=== PATIENT | male | born 1955 | race Two or more races ===

== ENCOUNTER 2025-05-02 16:27 | Inpatient (IN) | payer MEDICARE, OTHER ==
[~2025-05-02] VITALS: Ht 172.7 cm; Wt 69.9 kg
[2025-05-02] MEDS: HEPARIN SODIUM, PORCINE 5000 UNITS/1 ML VIAL SQ ONE ×2 (10:00→22:30)
[2025-05-02 16:59] LABS: LYMPHOCYTES # (AUTO) 0.2 K/uL (0.8-4.8); MONOCYTES # (AUTO) 0.8 K/uL (0.1-1.30); NEUTROPHILS # (AUTO) 8.8 K/uL (1.8-8.9); WHITE BLOOD COUNT (AUTO) 9.9 K/uL (4.3-11.0)
[2025-05-02 17:03] LABS: BASOPHILS % (AUTO) 0.1 % (0.0-2.0); HEMATOCRIT 40 % (39-51); HEMOGLOBIN 13.7 g/dL (13.5-17.5); LYMPHOCYTES % (AUTO) 2.3 % (20.0-44.0); MEAN CORPUSCULAR HEMOGLOBIN 30 PG (26.0-33.0); MEAN CORPUSCULAR HGB CONC 34 g/dl (31.0-36.0); MEAN CORPUSCULAR VOLUME 86 fL (80-96); MONOCYTES % (AUTO) 8.5 % (2.0-12.0); NEUTROPHILS % (AUTO) 89.1 % (43.0-81.0); PLATELET COUNT (AUTO) 242 K/uL (150-450); RED BLOOD CELL COUNT(AUTO) 4.64 MIL/uL (4.5-6.0)
[2025-05-02 17:05] LABS: CALCIUM, SERUM 9.3 mg/dL (8.5-10.1); CARBON DIOXIDE 19 mmol/L (21-32); CHLORIDE 94 mmol/L (98-107); GLUCOSE 112 mg/dL (74-106); POTASSIUM 3.7 mmol/L (3.5-5.1); SODIUM SERUM 137 mmol/L (136-145)
[2025-05-02 17:08] LABS: CREATININE 11.6 mg/dL (0.6-1.3); UREA NITROGEN, BLOOD 131 mg/dL (7-18)
[2025-05-02 17:09] LABS: ALANINE AMINOTRANSFERASE 243 U/L (12-78); ALBUMIN 3.3 g/dL (3.4-5.0); ALKALINE PHOSPHATASE 482 U/L (46-116); ASPARTATE AMINOTRANSFERASE 58 U/L (15-37); BILIRUBIN,DIRECT 6.2 mg/dL (0.0-0.2); BILIRUBIN,TOTAL 9.5 mg/dL (0.2-1.0); TOTAL PROTEIN, SERUM 7.3 g/dL (6.4-8.2)
[2025-05-02 17:11] LABS: ACETAMINOPHEN <10 ug/ml (10-30); SALICYLATE < 2.8 mg/dL (2.8-20.0)
[2025-05-02 17:12] LABS: ALCOHOL, BLOOD < 3 mg/dL (0-10)
[2025-05-02] MEDS ORDERED: IV NS 0.9% 1,000 ML BAG IV ONE (17:30)
[2025-05-02] MEDS: IV NS 0.9% 1,000 ML BAG IV ONE (17:41)
[2025-05-02] MEDS ORDERED: MORPHINE SULFATE INJ 2 MG/ML DISP.SYRIN IV PRN (18:00)
[2025-05-02] MEDS ORDERED: Z GUARD REMEDY 4 OZ OINT TP PRN (18:00)
[2025-05-02 18:35] LABS: LYMPHOCYTES % (MANUAL) 1 % (16-48); MONOCYTES % (MANUAL) 6 % (0-11.0); NEUTROPHILS % (MANUAL) 93 (42-76); PLATELET ESTIMATE ADEQUATE
[2025-05-02 18:36] LABS: TARGET CELLS FEW; TEAR DROP CELLS FEW
[2025-05-02 18:38] LABS: LACTIC ACID 3.5 mmol/L (0.4-2.0)
[2025-05-02 19:00] VITALS: BP 149/116; O2SAT 98
[2025-05-02 19:06] LABS: CREATINE KINASE, TOTAL 964 U/L (39-308)
[2025-05-02] MEDS: IV NS 0.9% 1,000 ML IV PRN (19:42)
[2025-05-02 19:48] LABS: NT-PRO BNP 214270 pg/mL (0-125)
[2025-05-02 20:00] VITALS: BP_SYST 147; BP_SYST 160; BP_DIAS 110; BP_DIAS 114; TEMP 97.8; O2SAT 100
[2025-05-02 21:00] VITALS: BP 158/115; O2SAT 100
[2025-05-02 22:00] VITALS: BP 163/109; O2SAT 100
[2025-05-02 22:29] LABS: INR 1.68 (0.91-1.10); PARTIAL THROMBOPLASTIN TIME 31.8 SEC (24.3-34.3); PROTHROMBIN TIME 17.2 SECS (9.2-11.1)
[2025-05-02] MEDS: FUROSEMIDE 20 MG/2 ML VIAL IV ONE (22:41)
[2025-05-02 23:00] VITALS: BP 160/115; O2SAT 100
[2025-05-02 23:18] LABS: ABG BASE EXCESS -6.6 mmol/L (-2.0-3.0); ABG OXYGEN SATURATION 99.1 % (94.0-98.0); ABG PCO2 28.7 mmHg (35.0-48.0); ABG PH 7.389 (7.350-7.450); ABG PO2 166.1 mmHg (83.0-108.0); ABG TOTAL HEMOGLOBIN 13.7 G/dL (13.5-17.5); MetHb 0.2 % (0.0-1.5); O2Hb 97.9 % (94.0-97.0)
[2025-05-02] MEDS: HEPARIN SODIUM, PORCINE 5000 UNITS/1 ML VIAL IV ONE (23:22)
[2025-05-02] MEDS ORDERED: IV NS 0.9% 1,000 ML BAG IV PRN (23:30)
[2025-05-02] MEDS: HEPARIN INFUSION/D5W 500 ML IV PRN (23:34)
[2025-05-03] VITALS (27 sets, daily range): BP systolic 128–165; BP diastolic 67–127; TEMP 97.6–98.5; O2SAT 91–100
[2025-05-03] MEDS: SODIUM BICARBONATE SYR 50 MEQ/50 ML DISP.SYRIN ONE ×2 (00:23→00:25)
[2025-05-03 00:52] LABS: HEMOGLOBIN 13.8 g/dL (13.5-17.5); LYMPHOCYTES # (AUTO) 0.3 K/uL (0.8-4.8); MONOCYTES # (AUTO) 0.5 K/uL (0.1-1.30)
[2025-05-03] MEDS: Sodium Bicarbonate 100 MEQ in IV D5/0.45 NACL 1,000 ML IV PRN (01:01)
[2025-05-03 01:07] LABS: ALBUMIN 3.2 g/dL (3.4-5.0); BILIRUBIN,TOTAL 9.6 mg/dL (0.2-1.0); CALCIUM, SERUM 8.7 mg/dL (8.5-10.1); MAGNESIUM 2.8 mg/dL (1.8-2.4); POTASSIUM 3.6 mmol/L (3.5-5.1); TOTAL PROTEIN, SERUM 7.1 g/dL (6.4-8.2)
[2025-05-03 01:14] LABS: MEAN CORPUSCULAR HGB CONC 33 g/dl (31.0-36.0); NEUTROPHILS # (AUTO) 10.3 K/uL (1.8-8.9); PLATELET COUNT (AUTO) 54 K/uL (150-450); WHITE BLOOD COUNT (AUTO) 11.1 K/uL (4.3-11.0)
[2025-05-03 01:16] LABS: APPEARANCE,URINE CLEAR (CLEAR); BILIRUBIN,URINE 1+ (NEGATIVE); BLOOD, URINE 3+ Ery/uL (NEGATIVE); COLOR,URINE YELLOW (YELLOW); KETONES,URINE NEGATIVE (NEGATIVE); LEUKOCYTE ESTERASE ,URINE NEGATIVE (NEGATIVE); NITRITE, URINE NEGATIVE (NEGATIVE); PH,URINE 5.5 (5.0-8.0); PROTEIN,URINE 2+ mg/dl (NEGATIVE); UGLUCOSE NEGATIVE (NEGATIVE)
[2025-05-03 01:25] LABS: CREATININE, URINE 105.1 MG/DL (30.0-125.0); URINE TOTAL PROTEIN 131.5 mg/dL (0-11.9)
[2025-05-03 01:27] LABS: AMPHETAMINE, URINE NEGATIVE (NEGATIVE); BARBITURATE, URINE NEGATIVE (NEGATIVE); BENZODIAZEPINE, URINE NEGATIVE (NEGATIVE); CANNABINOID, URINE NEGATIVE (NEGATIVE); COCCAINE, URINE NEGATIVE (NEGATIVE); OPIATE, URINE NEGATIVE (NEGATIVE); PHENCYCLIDINE SCREEN,URINE NEGATIVE (NEGATIVE)
[2025-05-03 01:29] LABS: BASOPHILS % (AUTO) 0.2 % (0.0-2.0); HEMATOCRIT 42 % (39-51); LYMPHOCYTES % (AUTO) 2.8 % (20.0-44.0); MEAN CORPUSCULAR HEMOGLOBIN 29 PG (26.0-33.0); MEAN CORPUSCULAR VOLUME 88 fL (80-96); MONOCYTES % (AUTO) 4.1 % (2.0-12.0); NEUTROPHILS % (AUTO) 92.9 % (43.0-81.0); RED BLOOD CELL COUNT(AUTO) 4.83 MIL/uL (4.5-6.0); RED CELL DISTRIBUTION WIDTH 18.2 % (11.5-15.0)
[2025-05-03 01:31] LABS: CREATININE 10.8 mg/dL (0.6-1.3); PHOSPHORUS 8.7 mg/dL (2.5-4.9)
[2025-05-03 01:57] LABS: WBC,URINE 0-2 /HPF (0-3)
[2025-05-03 02:08] LABS: ADD URINE CULTURE YES; BACTERIA,URINE 1+ /HPF (None Seen); URINE AMORPHOUS URATE Moderate /HPF (None Seen)
[2025-05-03 02:57] LABS: ANISOCYTOSIS 1+; LYMPHOCYTES % (MANUAL) 3 % (16-48); MONOCYTES % (MANUAL) 3 % (0-11.0); NEUTROPHILS % (MANUAL) 94 (42-76); PLATELET ESTIMATE DECREASED
[2025-05-03 03:45] LABS: EOSINOPHIL,URINE None Seen
[2025-05-03] MEDS: PANTOPRAZOLE 40 MG TABLET.DR PO SCH (08:41)
[2025-05-03 09:35] LABS: BASOPHILS % (AUTO) 0.1 % (0.0-2.0); EOSINOPHILS % (AUTO) 0.1 % (0.0-6.0); HEMATOCRIT 39 % (39-51); HEMOGLOBIN 12.9 g/dL (13.5-17.5); LYMPHOCYTES # (AUTO) 0.5 K/uL (0.8-4.8); LYMPHOCYTES % (AUTO) 4.5 % (20.0-44.0); MEAN CORPUSCULAR HEMOGLOBIN 29 PG (26.0-33.0); MEAN CORPUSCULAR HGB CONC 33 g/dl (31.0-36.0); MEAN CORPUSCULAR VOLUME 88 fL (80-96); MONOCYTES # (AUTO) 0.7 K/uL (0.1-1.30); MONOCYTES % (AUTO) 6.6 % (2.0-12.0); NEUTROPHILS # (AUTO) 9.6 K/uL (1.8-8.9); NEUTROPHILS % (AUTO) 88.7 % (43.0-81.0); PLATELET COUNT (AUTO) 51 K/uL (150-450); RED BLOOD CELL COUNT(AUTO) 4.42 MIL/uL (4.5-6.0); RED CELL DISTRIBUTION WIDTH 17.6 % (11.5-15.0); WHITE BLOOD COUNT (AUTO) 10.9 K/uL (4.3-11.0)
[2025-05-03 09:52] LABS: ALBUMIN 2.9 g/dL (3.4-5.0); BILIRUBIN,TOTAL 7.8 mg/dL (0.2-1.0); CALCIUM, SERUM 8.7 mg/dL (8.5-10.1); MAGNESIUM 2.9 mg/dL (1.8-2.4); POTASSIUM 3.5 mmol/L (3.5-5.1); TOTAL PROTEIN, SERUM 6.6 g/dL (6.4-8.2)
[2025-05-03 09:53] LABS: CREATININE 10.9 mg/dL (0.6-1.3); INR 1.56 (0.91-1.10); PROTHROMBIN TIME 16.1 SECS (9.2-11.1)
[2025-05-03 09:56] LABS: PARTIAL THROMBOPLASTIN TIME 109.7 SEC (24.3-34.3)
[2025-05-03 11:50] LABS: LYMPHOCYTES % (MANUAL) 8 % (16-48); MONOCYTES % (MANUAL) 6 % (0-11.0); NEUTROPHILS % (MANUAL) 86 (42-76)
[2025-05-03 11:52] LABS: PLATELET ESTIMATE DECRE
[2025-05-03] MEDS: hydrALAZINE HCL 25 MG TABLET PO SCH (13:02)
[2025-05-03 17:20] LABS: IRON, SERUM 18 ug/dl (50-175); TOTAL IRON BINDING CAPACITY 310 ug/dl (250-450)
[2025-05-03 17:29] LABS: BASOPHILS % (AUTO) 0.3 % (0.0-2.0); EOSINOPHILS % (AUTO) 0.3 % (0.0-6.0); HEMATOCRIT 37 % (39-51); HEMOGLOBIN 12.2 g/dL (13.5-17.5); LYMPHOCYTES # (AUTO) 0.4 K/uL (0.8-4.8); LYMPHOCYTES % (AUTO) 3.7 % (20.0-44.0); MEAN CORPUSCULAR HEMOGLOBIN 29 PG (26.0-33.0); MEAN CORPUSCULAR HGB CONC 33 g/dl (31.0-36.0); MEAN CORPUSCULAR VOLUME 87 fL (80-96); MONOCYTES # (AUTO) 0.7 K/uL (0.1-1.30); MONOCYTES % (AUTO) 5.7 % (2.0-12.0); NEUTROPHILS # (AUTO) 10.6 K/uL (1.8-8.9); PLATELET COUNT (AUTO) 52 K/uL (150-450); RED BLOOD CELL COUNT(AUTO) 4.25 MIL/uL (4.5-6.0); RED CELL DISTRIBUTION WIDTH 17.6 % (11.5-15.0); WHITE BLOOD COUNT (AUTO) 11.8 K/uL (4.3-11.0)
[2025-05-03 17:34] LABS: FERRITIN 181 ng/mL (8-388)
[2025-05-03 18:15] LABS: ANISOCYTOSIS 1+; BASOPHILS % (MANUAL) 0 % (0.0-2.0); EOSINOPHILS % (MANUAL) 0 % (0-4); LYMPHOCYTES % (MANUAL) 5 % (16-48); MONOCYTES % (MANUAL) 7 % (0-11.0); NEUTROPHILS % (MANUAL) 88 (42-76); PLATELET ESTIMATE DECREASED
[2025-05-03 18:29] LABS: RHEUMATOID FACTOR SCREEN POSITIVE (NEGATIVE)
[2025-05-03] MEDS: Sodium Bicarbonate 100 MEQ in IV D5/0.45 NACL 1,000 ML IV SCH (19:43)
[2025-05-03 22:13] LABS: THYROID STIMULATING HORMONE 1.71 uIU/mL (0.358-3.74)
[2025-05-04] VITALS (24 sets, daily range): BP systolic 125–162; BP diastolic 75–121; TEMP 97.9–98.4; O2SAT 90–100
[2025-05-04 04:42] LABS: BASOPHILS % (AUTO) 0.1 % (0.0-2.0); CALCIUM, SERUM 8.3 mg/dL (8.5-10.1); HEMATOCRIT 37 % (39-51); HEMOGLOBIN 12.4 g/dL (13.5-17.5); LYMPHOCYTES # (AUTO) 0.5 K/uL (0.8-4.8); LYMPHOCYTES % (AUTO) 3.8 % (20.0-44.0); MEAN CORPUSCULAR HEMOGLOBIN 29 PG (26.0-33.0); MEAN CORPUSCULAR HGB CONC 33 g/dl (31.0-36.0); MEAN CORPUSCULAR VOLUME 87 fL (80-96); MONOCYTES # (AUTO) 0.7 K/uL (0.1-1.30); MONOCYTES % (AUTO) 5.7 % (2.0-12.0); NEUTROPHILS # (AUTO) 11.4 K/uL (1.8-8.9); NEUTROPHILS % (AUTO) 90.4 % (43.0-81.0); PLATELET COUNT (AUTO) 54 K/uL (150-450); POTASSIUM 3.3 mmol/L (3.5-5.1); RED BLOOD CELL COUNT(AUTO) 4.31 MIL/uL (4.5-6.0); RED CELL DISTRIBUTION WIDTH 17.7 % (11.5-15.0); WHITE BLOOD COUNT (AUTO) 12.7 K/uL (4.3-11.0)
[2025-05-04 04:47] LABS: INR 1.47 (0.91-1.10); PROTHROMBIN TIME 15.2 SECS (9.2-11.1)
[2025-05-04 04:58] LABS: CREATININE 10.2 mg/dL (0.6-1.3)
[2025-05-04 05:12] LABS: HEPATITIS B SURFACE AB (QUAL) Non Reactive (.)
[2025-05-04 05:48] LABS: LYMPHOCYTES % (MANUAL) 2 % (16-48); MONOCYTES % (MANUAL) 6 % (0-11.0); NEUTROPHILS % (MANUAL) 92 (42-76); PLATELET ESTIMATE DECREASED
[2025-05-04 05:49] LABS: ANISOCYTOSIS 1+
[2025-05-04 05:52] LABS: TARGET CELLS FEW
[2025-05-04 06:07] LABS: PTH, INTACT 235 pg/mL (15-65)
[2025-05-04 08:11] LABS: IMMUNOGLOBULIN A, SERUM 293 mg/dL (61-437); IMMUNOGLOBULIN G, SERUM 1291 mg/dL (603-1613); IMMUNOGLOBULIN M, SERUM 116 mg/dL (20-172)
[2025-05-04] MEDS: DOBUTamine 500 MG in IV D5W 210 ML IV PRN (09:25)
[2025-05-04] MEDS ORDERED: ASPIRIN 81 MG TAB.CHEW PO SCH (09:30)
[2025-05-04] MEDS ORDERED: VANCOMYCIN POST DIALYSIS 500MG IV PRN (11:00)
[2025-05-04] MEDS: VANCOMYCIN 1 GM in IV D5W 250ml IV ONE (11:44)
[2025-05-04] MEDS: diphenhydrAMINE HCL 50 MG/ML VIAL IV ONE (11:50)
[2025-05-04] MEDS: ACETAMINOPHEN 325 MG TABLET PO ONE (11:50)
[2025-05-04 13:08] LABS: *ANA ANTI-CENTROMERE B AB <0.2 AI (0.0-0.9); *ANA ANTI-DNA(DS) AB, QN <1 IU/mL (0-9); *ANA ANTI-JO-1 <0.2 AI (0.0-0.9); *ANA ANTICHROMATIN ANTIBODY <0.2 AI (0.0-0.9); *ANA RNP ANTIBODIES <0.2 AI (0.0-0.9); *ANA SJOGREN'S ANTI-SS-A 0.4 AI (0.0-0.9); *ANA SJOGREN'S ANTI-SS-B <0.2 AI (0.0-0.9); *ANAANTI-SCLERODERMA-70 AB <0.2 AI (0.0-0.9); *ANASMITH AB <0.2 AI (0.0-0.9)
[2025-05-04 14:25] LABS: HIV-1 p24 ANTIGEN NON REACTIVE (NONREACTIVE); HIV-1/2 ANTIBODY NON REACTIVE (NONREACTIVE)
[2025-05-04] MEDS: CEFEPIME 1 GM in IV D5W 50 ML IV SCH (15:24)
[2025-05-04] MEDS: LACTULOSE 10 G/15 ML UDC (PYXIS) PO SCH (16:55)
[2025-05-05] VITALS (33 sets, daily range): BP systolic 125–145; BP diastolic 62–97; TEMP 97.8–98.4; O2SAT 90–100
[2025-05-05 06:59] LABS: EOSINOPHILS % (AUTO) 0.1 % (0.0-6.0); HEMATOCRIT 32 % (39-51); HEMOGLOBIN 10.7 g/dL (13.5-17.5); LYMPHOCYTES # (AUTO) 0.3 K/uL (0.8-4.8); LYMPHOCYTES % (AUTO) 2.4 % (20.0-44.0); MEAN CORPUSCULAR HEMOGLOBIN 29 PG (26.0-33.0); MEAN CORPUSCULAR HGB CONC 33 g/dl (31.0-36.0); MEAN CORPUSCULAR VOLUME 87 fL (80-96); MONOCYTES # (AUTO) 0.7 K/uL (0.1-1.30); MONOCYTES % (AUTO) 6.2 % (2.0-12.0); NEUTROPHILS % (AUTO) 91.3 % (43.0-81.0); RED BLOOD CELL COUNT(AUTO) 3.68 MIL/uL (4.5-6.0); RED CELL DISTRIBUTION WIDTH 17.7 % (11.5-15.0); WHITE BLOOD COUNT (AUTO) 10.9 K/uL (4.3-11.0)
[2025-05-05 07:11] LABS: INR 1.31 (0.91-1.10); PARTIAL THROMBOPLASTIN TIME 29.8 SEC (24.3-34.3); PROTHROMBIN TIME 13.6 SECS (9.2-11.1)
[2025-05-05 07:19] LABS: ALBUMIN 2.5 g/dL (3.4-5.0); BILIRUBIN,DIRECT 5.1 mg/dL (0.0-0.2); BILIRUBIN,TOTAL 7.5 mg/dL (0.2-1.0); CALCIUM, SERUM 7.7 mg/dL (8.5-10.1); CREATININE 7.3 mg/dL (0.6-1.3); MAGNESIUM 2.3 mg/dL (1.8-2.4); PHOSPHORUS 5.7 mg/dL (2.5-4.9); TOTAL PROTEIN, SERUM 5.7 g/dL (6.4-8.2)
[2025-05-05 07:36] LABS: D-DIMER 31.42 mg/L(FEU (0.17-0.50)
[2025-05-05 07:40] LABS: PLATELET COUNT (AUTO) 38 K/uL (150-450)
[2025-05-05] MEDS: FERROUS SULFATE (325 MG) 325 MG/TAB TABLET PO SCH (08:03)
[2025-05-05] MEDS ORDERED: NEPRO VAN 237 ML CAN PO PRN (09:00)
[2025-05-05 09:21] LABS: MAGNESIUM 2.2 mg/dL (1.8-2.4); PHOSPHORUS 5.8 mg/dL (2.5-4.9)
[2025-05-05 09:54] LABS: HEMATOCRIT 34 % (39-51); HEMOGLOBIN 11.2 g/dL (13.5-17.5); LYMPHOCYTES # (AUTO) 0.2 K/uL (0.8-4.8); LYMPHOCYTES % (AUTO) 2.1 % (20.0-44.0); MEAN CORPUSCULAR HEMOGLOBIN 29 PG (26.0-33.0); MEAN CORPUSCULAR HGB CONC 33 g/dl (31.0-36.0); MEAN CORPUSCULAR VOLUME 87 fL (80-96); MONOCYTES # (AUTO) 0.6 K/uL (0.1-1.30); MONOCYTES % (AUTO) 5.7 % (2.0-12.0); NEUTROPHILS # (AUTO) 9.9 K/uL (1.8-8.9); NEUTROPHILS % (AUTO) 92.2 % (43.0-81.0); RED BLOOD CELL COUNT(AUTO) 3.92 MIL/uL (4.5-6.0); RED CELL DISTRIBUTION WIDTH 17.7 % (11.5-15.0); WHITE BLOOD COUNT (AUTO) 10.7 K/uL (4.3-11.0)
[2025-05-05 10:15] LABS: PLATELET COUNT (AUTO) 43 K/uL (150-450)
[2025-05-05 11:53] LABS: LYMPHOCYTES % (MANUAL) 2 % (16-48); MONOCYTES % (MANUAL) 7 % (0-11.0); NEUTROPHILS % (MANUAL) 91 (42-76); PLATELET ESTIMATE DECREASED
[2025-05-06] VITALS (25 sets, daily range): BP systolic 136–152; BP diastolic 82–105; TEMP 98–98.2; O2SAT 87–100
[2025-05-06 04:32] LABS: CALCIUM, SERUM 7.8 mg/dL (8.5-10.1); CREATININE 4.6 mg/dL (0.6-1.3); POTASSIUM 3.1 mmol/L (3.5-5.1)
[2025-05-06 05:30] LABS: BASOPHILS % (AUTO) 0.3 % (0.0-2.0); HEMATOCRIT 34 % (39-51); HEMOGLOBIN 10.9 g/dL (13.5-17.5); LYMPHOCYTES # (AUTO) 0.3 K/uL (0.8-4.8); LYMPHOCYTES % (AUTO) 2.7 % (20.0-44.0); MEAN CORPUSCULAR HEMOGLOBIN 28 PG (26.0-33.0); MEAN CORPUSCULAR HGB CONC 32 g/dl (31.0-36.0); MEAN CORPUSCULAR VOLUME 87 fL (80-96); MONOCYTES # (AUTO) 0.7 K/uL (0.1-1.30); MONOCYTES % (AUTO) 6.1 % (2.0-12.0); NEUTROPHILS # (AUTO) 10.1 K/uL (1.8-8.9); NEUTROPHILS % (AUTO) 90.9 % (43.0-81.0); RED CELL DISTRIBUTION WIDTH 17.5 % (11.5-15.0); WHITE BLOOD COUNT (AUTO) 11.1 K/uL (4.3-11.0)
[2025-05-06 05:31] LABS: PLATELET COUNT (AUTO) 47 K/uL (150-450)
[2025-05-06 05:33] LABS: ANISOCYTOSIS 1+; LYMPHOCYTES % (MANUAL) 1 % (16-48); MONOCYTES % (MANUAL) 4 % (0-11.0); NEUTROPHILS % (MANUAL) 95 (42-76); PLATELET ESTIMATE DECREASED
[2025-05-06] MEDS: POTASSIUM CHLORIDE 20 MEQ POWDER PACKET GT ONE (07:00)
[2025-05-06] MEDS: POTASSIUM CHLORIDE 20 MEQ TAB.PRT.SR PO ONE (08:26)
[2025-05-06] MEDS: hydrALAZINE HCL 25 MG TABLET PO SCH (15:59)
[2025-05-06 16:03] LABS: INR 1.24 (0.91-1.10); PARTIAL THROMBOPLASTIN TIME 27.8 SEC (24.3-34.3)
[2025-05-06 16:06] LABS: D-DIMER 11.35 mg/L(FEU (0.17-0.50)
[2025-05-06] MEDS: DOBUTamine 500 MG in IV D5W 210 ML IV PRN (18:29)
[2025-05-07] VITALS (7 sets, daily range): BP systolic 129–152; BP diastolic 86–101; TEMP 97.3–98; O2SAT 89–100
[2025-05-07 06:58] LABS: CALCIUM, SERUM 8.5 mg/dL (8.5-10.1); CREATININE 5.7 mg/dL (0.6-1.3); POTASSIUM 3.9 mmol/L (3.5-5.1)
[2025-05-07 07:07] LABS: BASOPHILS % (AUTO) 0.1 % (0.0-2.0); EOSINOPHILS % (AUTO) 0.2 % (0.0-6.0); HEMATOCRIT 36 % (39-51); HEMOGLOBIN 11.8 g/dL (13.5-17.5); LYMPHOCYTES # (AUTO) 0.3 K/uL (0.8-4.8); LYMPHOCYTES % (AUTO) 2.7 % (20.0-44.0); MEAN CORPUSCULAR HEMOGLOBIN 29 PG (26.0-33.0); MEAN CORPUSCULAR HGB CONC 33 g/dl (31.0-36.0); MEAN CORPUSCULAR VOLUME 88 fL (80-96); MONOCYTES # (AUTO) 0.8 K/uL (0.1-1.30); MONOCYTES % (AUTO) 7.7 % (2.0-12.0); NEUTROPHILS # (AUTO) 9.2 K/uL (1.8-8.9); NEUTROPHILS % (AUTO) 89.3 % (43.0-81.0); PLATELET COUNT (AUTO) 54 K/uL (150-450); RED BLOOD CELL COUNT(AUTO) 4.08 MIL/uL (4.5-6.0); RED CELL DISTRIBUTION WIDTH 17.3 % (11.5-15.0); WHITE BLOOD COUNT (AUTO) 10.3 K/uL (4.3-11.0)
[2025-05-07 15:41] LABS: ANISOCYTOSIS 1+; BASOPHILS % (MANUAL) 0 % (0.0-2.0); EOSINOPHILS % (MANUAL) 0 % (0-4); LYMPHOCYTES % (MANUAL) 2 % (16-48); MONOCYTES % (MANUAL) 6 % (0-11.0); NEUTROPHILS % (MANUAL) 92 (42-76); PLATELET ESTIMATE DECREASED
[2025-05-08] VITALS: BP 138/94; TEMP 97.7; O2SAT 100
[2025-05-08 04:00] VITALS: BP 138/96; TEMP 98; O2SAT 100
[2025-05-08 04:07] LABS: HEPATITIS B CORE AB, IgM Negative (Negative); HEPATITIS B CORE AB, TOTAL Negative (Negative)
[2025-05-08 07:27] LABS: EOSINOPHILS % (AUTO) 0.3 % (0.0-6.0); HEMATOCRIT 34 % (39-51); HEMOGLOBIN 11.2 g/dL (13.5-17.5); LYMPHOCYTES # (AUTO) 0.4 K/uL (0.8-4.8); LYMPHOCYTES % (AUTO) 3.6 % (20.0-44.0); MEAN CORPUSCULAR HEMOGLOBIN 29 PG (26.0-33.0); MEAN CORPUSCULAR HGB CONC 33 g/dl (31.0-36.0); MEAN CORPUSCULAR VOLUME 87 fL (80-96); MONOCYTES # (AUTO) 0.8 K/uL (0.1-1.30); MONOCYTES % (AUTO) 7.9 % (2.0-12.0); NEUTROPHILS # (AUTO) 9.2 K/uL (1.8-8.9); NEUTROPHILS % (AUTO) 88.2 % (43.0-81.0); PLATELET COUNT (AUTO) 68 K/uL (150-450); RED BLOOD CELL COUNT(AUTO) 3.87 MIL/uL (4.5-6.0); RED CELL DISTRIBUTION WIDTH 17.7 % (11.5-15.0); WHITE BLOOD COUNT (AUTO) 10.4 K/uL (4.3-11.0)
[2025-05-08 08:00] VITALS: BP 140/95; TEMP 97.8; O2SAT 100
[2025-05-08 08:26] LABS: CALCIUM, SERUM 8.2 mg/dL (8.5-10.1); CREATININE 4.3 mg/dL (0.6-1.3); POTASSIUM 3.6 mmol/L (3.5-5.1)
[2025-05-08 10:07] LABS: *SPE A/G RATIO 0.9 (0.7-1.7); *SPE ALBUMIN 2.9 g/dL (2.9-4.4); *SPE ALPHA-1-GLOBULIN 0.4 g/dL (0.0-0.4); *SPE ALPHA-2-GLOBULIN 0.4 g/dL (0.4-1.0); *SPE GLOBULIN, TOTAL 3.1 g/dL (2.2-3.9); *SPE M-SPIKE Not Observed g/dL (Not Observed); *SPEGAMMA GLOBULIN 1.4 g/dL (0.4-1.8)
[2025-05-08 10:07] LABS: *SPE A/G RATIO 0.9 (0.7-1.7); *SPE ALBUMIN 2.8 g/dL (2.9-4.4); *SPE ALPHA-1-GLOBULIN 0.4 g/dL (0.0-0.4); *SPE ALPHA-2-GLOBULIN 0.4 g/dL (0.4-1.0); *SPE BETA GLOBULIN 0.9 g/dL (0.7-1.3); *SPE GLOBULIN, TOTAL 3.1 g/dL (2.2-3.9); *SPE M-SPIKE Not Observed g/dL (Not Observed); *SPE PROTEIN TOTAL 5.9 g/dL (6.0-8.5); *SPEGAMMA GLOBULIN 1.4 g/dL (0.4-1.8)
[2025-05-08 10:24] LABS: LYMPHOCYTES % (MANUAL) 4 % (16-48); MONOCYTES % (MANUAL) 8 % (0-11.0); NEUTROPHILS % (MANUAL) 88 (42-76); PLATELET ESTIMATE DECREASED
[2025-05-08 12:00] VITALS: BP 143/86; TEMP 97.8; O2SAT 100
[2025-05-08] MEDS ORDERED: IOHEXOL 0 ML IV ONE (14:08)
[2025-05-08] MEDS ORDERED: LIDOCAINE 1% INJ 50 ML MDV IJ ONE (14:08)
[2025-05-08] MEDS ORDERED: HEPARIN SODIUM, PORCINE 1,000 UNIT/ML VIAL ONE (14:08)
[2025-05-08 16:00] VITALS: BP 134/94; TEMP 97.8; O2SAT 98
[2025-05-08 20:00] VITALS: BP 135/94; TEMP 97; O2SAT 99
[2025-05-09] VITALS (7 sets, daily range): BP systolic 123–142; BP diastolic 75–102; TEMP 97–98.3; O2SAT 99–100
[2025-05-09] MEDS: ANCEF 1 GM/50 ML D5W IV SCH (00:20)
[2025-05-09 07:25] LABS: BASOPHILS % (AUTO) 0.1 % (0.0-2.0); EOSINOPHILS % (AUTO) 0.5 % (0.0-6.0); HEMATOCRIT 35 % (39-51); HEMOGLOBIN 11.3 g/dL (13.5-17.5); LYMPHOCYTES # (AUTO) 0.3 K/uL (0.8-4.8); LYMPHOCYTES % (AUTO) 3.3 % (20.0-44.0); MEAN CORPUSCULAR HEMOGLOBIN 28 PG (26.0-33.0); MEAN CORPUSCULAR HGB CONC 32 g/dl (31.0-36.0); MEAN CORPUSCULAR VOLUME 87 fL (80-96); MONOCYTES # (AUTO) 0.8 K/uL (0.1-1.30); MONOCYTES % (AUTO) 8.1 % (2.0-12.0); NEUTROPHILS # (AUTO) 8.9 K/uL (1.8-8.9); PLATELET COUNT (AUTO) 75 K/uL (150-450); RED BLOOD CELL COUNT(AUTO) 4.02 MIL/uL (4.5-6.0); RED CELL DISTRIBUTION WIDTH 17.1 % (11.5-15.0); WHITE BLOOD COUNT (AUTO) 10.2 K/uL (4.3-11.0)
[2025-05-09 07:39] LABS: CALCIUM, SERUM 8.3 mg/dL (8.5-10.1); CREATININE 5.3 mg/dL (0.6-1.3); POTASSIUM 3.7 mmol/L (3.5-5.1)
[2025-05-09 07:40] LABS: INR 1.13 (0.91-1.10); PARTIAL THROMBOPLASTIN TIME 25.9 SEC (24.3-34.3); PROTHROMBIN TIME 11.9 SECS (9.2-11.1)
[2025-05-09 08:19] LABS: D-DIMER 8.23 mg/L(FEU (0.17-0.50)
[2025-05-09 10:25] LABS: EOSINOPHILS % (MANUAL) 1 % (0-4); LYMPHOCYTES % (MANUAL) 3 % (16-48); MONOCYTES % (MANUAL) 7 % (0-11.0); NEUTROPHILS % (MANUAL) 89 (42-76); PLATELET ESTIMATE DECREASED
[2025-05-09] MEDS: METOPROLOL TARTRATE 25 MG TABLET PO SCH (16:02)
[2025-05-10] VITALS: BP 125/83; TEMP 97.3; O2SAT 99
[2025-05-10 00:04] VITALS: BP 125/83; TEMP 97.5; O2SAT 99
[2025-05-10 04:00] VITALS: BP 128/81; TEMP 97.9; O2SAT 99
[2025-05-10 06:52] LABS: BASOPHILS % (AUTO) 0.3 % (0.0-2.0); EOSINOPHILS # (AUTO) 0.1 K/uL (0.0-0.7); EOSINOPHILS % (AUTO) 0.8 % (0.0-6.0); HEMATOCRIT 34 % (39-51); HEMOGLOBIN 11.1 g/dL (13.5-17.5); LYMPHOCYTES # (AUTO) 0.4 K/uL (0.8-4.8); LYMPHOCYTES % (AUTO) 4.2 % (20.0-44.0); MEAN CORPUSCULAR HEMOGLOBIN 29 PG (26.0-33.0); MEAN CORPUSCULAR HGB CONC 33 g/dl (31.0-36.0); MEAN CORPUSCULAR VOLUME 87 fL (80-96); MONOCYTES # (AUTO) 0.8 K/uL (0.1-1.30); MONOCYTES % (AUTO) 8.4 % (2.0-12.0); NEUTROPHILS # (AUTO) 8.4 K/uL (1.8-8.9); NEUTROPHILS % (AUTO) 86.3 % (43.0-81.0); PLATELET COUNT (AUTO) 74 K/uL (150-450); RED BLOOD CELL COUNT(AUTO) 3.89 MIL/uL (4.5-6.0); RED CELL DISTRIBUTION WIDTH 17.1 % (11.5-15.0); WHITE BLOOD COUNT (AUTO) 9.7 K/uL (4.3-11.0)
[2025-05-10 07:22] LABS: CALCIUM, SERUM 7.9 mg/dL (8.5-10.1); CREATININE 3.8 mg/dL (0.6-1.3); POTASSIUM 3.5 mmol/L (3.5-5.1)
[2025-05-10 07:25] LABS: BILIRUBIN,DIRECT 2.2 mg/dL (0.0-0.2); BILIRUBIN,TOTAL 3.6 mg/dL (0.2-1.0)
[2025-05-10 08:00] VITALS: BP 127/87; TEMP 97.8; O2SAT 100
[2025-05-10 09:06] LABS: LYMPHOCYTES % (MANUAL) 3 % (16-48); MONOCYTES % (MANUAL) 7 % (0-11.0); NEUTROPHILS % (MANUAL) 90 (42-76)
[2025-05-10 09:08] LABS: PLATELET ESTIMATE DECREASED
[2025-05-10 09:09] LABS: ANISOCYTOSIS 1+
[2025-05-10] MEDS ORDERED: LACTULOSE 10 G/15 ML UDC (PYXIS) PO PRN (11:00)
[2025-05-10 12:00] VITALS: BP 128/89; TEMP 97.6; O2SAT 99
[2025-05-10] MEDS ORDERED: LACT10SO58 PO (15:46)
[2025-05-10] MEDS ORDERED: FERR325T28 PO (15:46)
[2025-05-10] MEDS ORDERED: HYDR-4076 PO (15:46)
[2025-05-10] MEDS ORDERED: PANT40TA49 PO (15:47)
[2025-05-10] MEDS ORDERED: METO25TA4 PO (15:47)
[2025-05-10] MEDS ORDERED: NUT.237L67 PO (15:47)
[2025-05-10 16:10] VITALS: BP 107/80; TEMP 97.1; O2SAT 100
== END 2025-05-10 18:18 | DRG 280 ==
LOC: ER 16:29 → ICU 18:07 → TELE1 05-07 01:18 → TELE-TD 05-07 02:09 → TELE1 05-10 09:19
PROVIDERS: ADMIT Nurse Practitioner Acute Care; ATTEND Internal Medicine
PROC: 05HM33Z Insertion of Infusion Device into Right Internal Jugular Vein, Percutaneous Approach (ICD-10-PCS; principal; 2025-05-03)
PROC: B543ZZA Ultrasonography of Right Jugular Veins, Guidance (ICD-10-PCS; 2025-05-03)
PROC: 5A1D70Z Performance of Urinary Filtration, Intermittent, Less than 6 Hours Per Day (ICD-10-PCS; 2025-05-04)
PROC: 30233M1 Transfusion of Nonautologous Plasma Cryoprecipitate into Peripheral Vein, Percutaneous Approach (ICD-10-PCS; 2025-05-05)
PROC: 0JH63XZ Insertion of Tunneled Vascular Access Device into Chest Subcutaneous Tissue and Fascia, Percutaneous Approach (ICD-10-PCS; 2025-05-08)
PROC: 02HV33Z Insertion of Infusion Device into Superior Vena Cava, Percutaneous Approach (ICD-10-PCS; 2025-05-08)
PROC: B518YZA Fluoroscopy of Superior Vena Cava using Other Contrast, Guidance (ICD-10-PCS; 2025-05-08)
DX: I13.0 Hypertensive heart and chronic kidney disease with heart failure and stage 1 through stage 4 chronic kidney disease, or unspecified chronic kidney disease (principal); A41.9 Sepsis, unspecified organism; I21.A1 Myocardial infarction type 2; G92.8 Other toxic encephalopathy; J15.69 Pneumonia due to other Gram-negative bacteria; N17.0 Acute kidney failure with tubular necrosis; I50.21 Acute systolic (congestive) heart failure; E44.0 Moderate protein-calorie malnutrition; E87.20 Acidosis, unspecified; M62.82 Rhabdomyolysis; D61.818 Other pancytopenia; E72.20 Disorder of urea cycle metabolism, unspecified; Z59.00 Homelessness unspecified; K86.1 Other chronic pancreatitis; D68.4 Acquired coagulation factor deficiency; I42.9 Cardiomyopathy, unspecified; E86.0 Dehydration; D69.59 Other secondary thrombocytopenia; E87.6 Hypokalemia; E88.09 Other disorders of plasma-protein metabolism, not elsewhere classified; K76.0 Fatty (change of) liver, not elsewhere classified; K44.9 Diaphragmatic hernia without obstruction or gangrene; R53.1 Weakness; E80.6 Other disorders of bilirubin metabolism; R74.01 Elevation of levels of liver transaminase levels; R74.8 Abnormal levels of other serum enzymes; R62.7 Adult failure to thrive; Z86.73 Personal history of transient ischemic attack (TIA), and cerebral infarction without residual deficits; Z68.23 Body mass index [BMI] 23.0-23.9, adult; N18.9 Chronic kidney disease, unspecified; I73.9 Peripheral vascular disease, unspecified; D50.9 Iron deficiency anemia, unspecified; K82.8 Other specified diseases of gallbladder; F10.21 Alcohol dependence, in remission; I51.3 Intracardiac thrombosis, not elsewhere classified
CPT/HCPCS: 36415; 36600; 70450-TC; 71045-TC; 76700-TC; 76705-TC; 76770-TC; 80048-TC; 80053-TC; 80061-TC; 80076-TC; 80202-TC; 81001; 82140-TC; 82247-TC; 82248-TC; 82550-TC; 82553; 82570-TC; 82607-TC; 82728-TC; 82784; 82803-TC; 83540-TC; 83605-TC; 83690-TC; 83735-TC; 83880; 83935-TC; 83970; 84100-TC; 84155; 84165; 84300-TC; 84443-TC; 84484-TC; 85025-TC; 85385-TC; 85396; 85610-TC; 85730-TC; 86022; 86225; 86235; 86334; 86431-TC; 86704; 86705; 86706; 86803; 86850-TC; 87040-TC; 87081-TC; 87086-TC; 87340; 87806; 90935-TC; 93307-TC; 93970-TC; A4223; A6403; C1750; C1752; C1894; G0378; G0480; J0690; J0692; J1200; J1250; J1644; J1938; J2704; J3370; J3490; J7030; J7050; J7060; P9012; Q9967